=== PATIENT | male | born 1970 ===

== ENCOUNTER 2019-03-14 09:49 | Outpatient (CLI) | payer BC ==
--- NOTE | 2019-03-14 12:12 | RAD ---
EXAM: 2 views of the lumbosacral spine HISTORY: Chronic low back pain COMPARISON: None FINDINGS: 2 views of the lumbosacral spine shows normal height and alignment of the vertebral bodies and intervertebral discs without fracture or subluxation. A very small osteophyte is seen projecting off the superior endplate of L4. The sacroiliac joints are unremarkable. IMPRESSION: No significant lumbar spine abnormality.
== END 2019-03-14 09:50 | disposition home or self-care (01) ==
LOC: SCSRAD 09:49
PROVIDERS: ATTEND Family Medicine
DX: M54.5 Low back pain (principal)
CPT/HCPCS: 72100

== ENCOUNTER 2021-11-24 07:35 | Outpatient (CLI) | payer BC | END 2021-11-24 07:36 | disposition home or self-care (01) | LOC: SCSMRI 07:35 | PROVIDERS: ATTEND Specialist | DX: M51.16 Intervertebral disc disorders with radiculopathy, lumbar region (principal); M51.17 Intervertebral disc disorders with radiculopathy, lumbosacral region | CPT/HCPCS: 72148 ==